=== PATIENT | male | born 2000 | race Caucasian/White ===

== ENCOUNTER 2022-01-28 20:10 | Emergency (ER) | payer BC, OTHER ==
[2022-01-28] MEDS ORDERED: Lidocaine 1% 10 ML MDV INJECT ONE (20:32)
== END 2022-01-28 21:25 | disposition home or self-care (01) ==
LOC: JD.ED 20:10
DX: S61.210A Laceration without foreign body of right index finger without damage to nail, initial encounter (principal); W26.0XXA Contact with knife, initial encounter; Y99.0 Civilian activity done for income or pay
CPT/HCPCS: 12001; 99283